=== PATIENT | female | born 1960 | race Two or more races ===

== ENCOUNTER → 2023-02-03 | Outpatient (CLI) | payer OTHER, SELFPAY ==
--- NOTE | 2023-02-03 15:57 | BI_ITS ---
MAMMOGRAPHY - BILATERAL SCREENING REASON FOR EXAM: Female, 62 years old. Routine annual screening examination. PERTINENT HISTORY: Aunt with breast cancer. TECHNIQUE: Digital bilateral breast traci (3D mammographic acquisition) in the CC and MLO projections. 2-D mediolateral oblique (MLO) and craniocaudad (CC) views of both breasts were obtained. CAD: Full Field Digital Mammography with Computer Added Detection was performed. COMPARISON: Comparison is made with prior outside examination October 24, 2020. FINDINGS: Breast Composition: The breasts are heterogeneously dense, which may obscure small masses. There are no dominant masses or suspicious calcifications. Stable small benign-appearing bilateral axillary lymph nodes. No other significant abnormalities are identified. There has been no significant change since the prior study. BI/SCRN MAMM (CAD)W/TRACI BILAT IMPRESSION: Stable bilateral screening mammogram. Yearly follow-up mammogram recommended. (A) ASSESSMENT CATEGORY: BIRADS Category 2: Benign. A letter regarding these results will be sent to the patient by the facility within 30 days. Approximately 10% of breast cancers are not detected by mammography. A normal mammogram should not delay biopsy of a clinically suspicious abnormality. [id number] Electronically Signed: Andrew Yousif MD at 8:30 EST ,
== END | disposition home or self-care (01) ==
LOC: OPBI 15:55
PROVIDERS: PCP Internal Medicine; Visit Provider Student in an Organized Health Care Education/Training Program
DX: Z12.31 Encounter for screening mammogram for malignant neoplasm of breast (principal)
CPT/HCPCS: 77063; 77067

== ENCOUNTER 2023-10-14 12:00 | Outpatient (RCR) | payer OTHER, SELFPAY ==
--- NOTE | 2023-08-28 13:02 | HP.PTEVAL_ITS ---
Patient's Visit Information Visit Information Visit Information: SYLVIA RIVERA is a 62 year old F referred to Physical Therapy by Dr. 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 Date of Evaluation: 08/27/23 Physical Therapist: Jennifer Sky PT, Cert MDT Visit Plan Frequency: 1x/Week Duration: 2-4 Months Plan: MANUAL PF THERAPY FOR LENGTHENING/RELAXATION AND TRIGGER POINT RELEASE. CORE STRENGTHENING. ANUEL LE STRETCHING. HOME INSTRUCTIONS. 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 Disability: NO Present symptoms: PAIN WITH INTERCOURSE. OTHERWISE NO PAIN OTHER THAN WITH IC FLARE-UPS. PATIENT DENIES HAVING ANY URINARY INCONTINENCE CURRENTLY BUT REPORTS SHE DOES HAVE SOME WHEN IC FLARES. Present since: YEARS Pain Scale: WORST 7/10 Is it getting better, worse or staying the same: GETTING WORSE Commenced as a result of: NO APPARENT REASON. Disturbed sleep: GETTING UP TO URINATE 0-1 TIMES AT NIGHT. Previous history/Previous treatment: INTERSTITIAL CYSTITIS. MIXED INCONTINENCE. ONE UTI IN PAST YEAR. DYSPAREUNIA. VAGINAL INFECTION IN THE SPRING INVOLVING VAGINAL BLEEDING. Treatment this episode: PATIENT DENIES HAVING ANY PRIOR OR CURRENT TREATMENT FOR DYSPAREUNIA. Gait: NORAML Prolapse (Falling out feeling): NO Frequency of Urination: APPROX 5 TIMES A DAY. Ability to stop urine flow: YES Ability to initiate urine stream: YES Dyspareunia: YES Bowel Incontinence: NO Imaging: PATIENT REPORTS TESTING RECENTLY SHOWED GOOD EMPTYING OF HER BLADDER. NO OTHER RECENT BACK, HIP OR PELVIC IMAGING THAT PATIENT REPORTS. PMH/Recent major surgery: MIGRAINES, GLAUCOMA, GERD, PARTIAL HYSTERECTOMY. OTHER: PATIENT REPORTS SHE HAS A VERY STRESSFUL JOB AND SHE FEELS VERY OVERWHELMED. SHE STATES SHE FEELS LIKE HER CORE AND HER MUSCLES ARE SLOPPY AND SHE NEEDS AN EXPERT TO HELP HER. Objective Objective: Sitting/Standing Posture: FAIR. MILDLY REDUCED LUMBAR LORDOSIS BUT NO RELEVANT LATERAL SHIFT. Other Observations: INDEP GAIT AND TRANSFERS Sensory deficit: ANUEL LE LIGHT TOUCH SENSATION GROSSLY INTACT AND SYMMETRICAL ROM deficit: ANUEL LE HS, HIP ADDUCTOR, HIP ER AND GASTROC-SOLEUS COMPLEX TIGHTNESS. Motor deficit: ANUEL LE STRENGTH GROSSLY 5/5 WITH MMT'ING EXCEPT HIPS 4/5. Dural Signs: NEGATIVE ANUEL LE'S. Lumbar mvmt loss: flex - MIN ext - MOD R SG - MIN L SG - MOD PATIENT DENIES PAIN WITH LUMBAR ROM TESTING ALL PLANES. Core strength: POOR Palpation: PATIENT AND THERAPIST DEFERRED INTERNAL MANUAL PF TESTING TO THE NEXT FOLLOW UP VISIT OR TWO DUE TO PATIENT FEELING OVERWHELMED. FUNCTIONAL SCREEN: Incontinence Impact Questionnaire Score: 1 Urogenital Distress Inventory Score: 3 Goals Goal 1:: PATIENT WILL BE ABLE TO HAVE SEXUAL RELATIONS WITH HER WITHOUT PAIN. Goal Time Frame: 6-8 Weeks Goal 2:: PATIENT WILL BE INDEP WITH A HEP/HOME INSTRUCTIONS FOR CONTINUED IMPROVEMENT ONCE FORMAL PHYSICAL THERAPY CONCLUDES. Goal Time Frame: 8-12 Weeks Anticipated Interventions Patient/Client Instruction: Educate patient on: Condition, Plan of Care and Risk Factors For the Purpose of:: To improve self management Therapeutic Exercise to Include: Strength training, Flexibilty training, Relaxation training and Dynamic Lumbar Stabilization For the Purpose of:: To decrease pain, To improve muscle performance and motor function and To increase flexibility/ROM Manual Therapy Techniques to Include: Trigger point massage and Soft tissue mobilization For the Purpose of:: To decrease pain and To increase flexibility/ROM Text: Thank you for the opportunity to evaluate your patient. For Medicare and Medicare HMO plans, please review the plan of care and approve it. It will need to be FAXED BACK to us at [phone] for Medicare purposes. For Medicare only, by signing this I certify the plan of care. Please let me know if there are questions or concerns regarding this plan of care. Physician Signature: Date:
== END 2023-10-14 19:00 | disposition home or self-care (01) ==
LOC: PT 12:00
PROVIDERS: PCP Internal Medicine; Visit Provider Urology
DX: K59.02 Outlet dysfunction constipation (principal); N94.10 Unspecified dyspareunia
CPT/HCPCS: 97162; 97530

== ENCOUNTER 2024-03-01 11:30 | Outpatient (RCR) | payer OTHER, SELFPAY ==
--- NOTE | 2024-02-04 14:57 | HP.PTEVAL ---
Patient's Visit Information Visit Information Visit Information: SYLVIA RIVERA is a 63 year old F referred to Physical Therapy by Dr. Samantha Kay MD with a diagnosis of PELVIC FLOOR DYFUNCTION/DYSPAREUNIA. Date of Evaluation: 02/04/24 Physical Therapist: Jennifer Sky, PT, Cert MDT Visit Plan Frequency: 2x /Week Duration: 4-6 Weeks Plan: INTERNAL MANUAL PELVIC FLOOR THERAPY FOR LENGTHENING, RELAXATION AND PAIN RELIEF. THER EX AND ACT INSTRUCTION FOR PELVIC RELAXATION AND STRETCHING. Subjective Subjective: THIS PATIENT STOPPED ATTENDING PT IN OCT 2023 AND RETURNS NOW FOR EVALUATION WITH A NEW PT ORDER. 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 Disability: NO Present symptoms: PAIN WITH INTERCOURSE. OTHERWISE NO PAIN OTHER THAN WITH IC FLARE-UPS. HAVING SOME URINARY LEAKAGE ON AND OFF DURING THE DAY BUT NOT EVERY DAY. PATIENT REPORTS URINARY LEAKING WITH BENDING OVER ESPECIALLY IN THE MORNINGS AND ESPECIALLY IF SHE WAITED A LONG TIME TO VOID. Present since: PAIN WITH INTERCOURSE IS CHRONIC BUT UI IS NEW. Pain Scale: WORST 7/10 Is it getting better, worse or staying the same: GETTING BETTER SINCE STARTING PT LAST EPISODE OF CARE Commenced as a result of: NO APPARENT REASON. Disturbed sleep: GETTING UP TO URINATE 0-1 TIMES AT NIGHT. Previous history/Previous treatment: INTERSTITIAL CYSTITIS. MIXED INCONTINENCE. ONE UTI IN PAST YEAR. DYSPAREUNIA. VAGINAL INFECTION IN THE SPRING INVOLVING VAGINAL BLEEDING. PT 2022 Treatment this episode: NO NEW TREATMENT. Gait: NORAML Prolapse (Falling out feeling): NO Frequency of Urination: APPROX 5 TIMES A DAY. Ability to stop urine flow: YES Ability to initiate urine stream: YES Dyspareunia: YES Bowel Incontinence: NO Imaging: PATIENT REPORTS TESTING RECENTLY SHOWED GOOD EMPTYING OF HER BLADDER. NO OTHER RECENT BACK, HIP OR PELVIC IMAGING THAT PATIENT REPORTS. PMH/Recent major surgery: MIGRAINES, GLAUCOMA, GERD, PARTIAL HYSTERECTOMY. OTHER: PATIENT REPORTS SHE IS STILL FEELING SOMEWHAT UNCOMFORTABLE ABOUT HAVING PELVIC FLOOR THERAPY BUT BASED ON RECOMMENDATIONS FROM DR. KAY SHE IS WILLING TO TRY. SHE REPORTS SHE HAS CONTINUED HER INCONSISTENTLY AND FELT BENEFIT WHEN SHE WAS DOING THEM. Objective Objective: Objective: Sitting/Standing Posture: FAIR. MILDLY REDUCED LUMBAR LORDOSIS BUT NO RELEVANT LATERAL SHIFT. Other Observations: INDEP GAIT AND TRANSFERS Sensory deficit: ANUEL LE LIGHT TOUCH SENSATION GROSSLY INTACT AND SYMMETRICAL ROM deficit: ANUEL LE HS, HIP ADDUCTOR, HIP ER AND GASTROC-SOLEUS COMPLEX TIGHTNESS. Motor deficit: ANUEL LE STRENGTH GROSSLY 5/5 WITH MMT'ING EXCEPT HIPS 4/5. Dural Signs: NEGATIVE ANUEL LE'S. Lumbar mvmt loss: flex - MIN ext - MOD R SG - MIN L SG - MOD PATIENT DENIES PAIN WITH LUMBAR ROM TESTING ALL PLANES. Core strength: POOR Palpation: PATIENT AGREEABLE TO INTERNAL MANUAL PELVIC FLOOR TESTING TODAY. SHE HAS TIGHTNESS AND TENDERNESS THROUGHOUT HER PELVIC FLOOR REGION BUT ESPECIALLY THE RIGHT LEVATOR ANI. WITH TESTING HER PF STRENGTH IS 3/5 X 5 SEC X 3 REPS AND PATIENT DENIES INCREASED PAIN WITH STRENGHT TESTING. PATIENT IS UNABLE TO FULLY RELAX PELVIC FLOOR BUT RELAXATION IMPROVES WITH CUEING. FUNCTIONAL SCREEN: Incontinence Impact Questionnaire Score: 1 Urogenital Distress Inventory Score: 4 Goals Goal 1:: PATIENT WILL BE ABLE TO HAVE SEXUAL RELATIONS WITH HER WITHOUT PAIN. Goal Time Frame: 4-6 Weeks Goal 2:: PATIENT WILL BE INDEP WITH A HEP/HOME INSTRUCTIONS FOR CONTINUED IMPROVEMENT ONCE FORMAL PHYSICAL THERAPY CONCLUDES. Goal Time Frame: 4-6 Weeks Rehabilitation Potential Physical Therapy Diagnosis: BELKIS TONE PELVIC FLOOR WITH PELVIC FLOOR AND CORE WEAKNESS. Rehabilitation Potential: Good Anticipated Interventions Patient/Client Instruction: Educate patient on: Condition, Plan of Care and Risk Factors For the Purpose of:: To improve self management Therapeutic Exercise to Include: Flexibilty training and Relaxation training For the Purpose of:: To decrease pain, To decrease soft tissue restriction and To increase flexibility/ROM Manual Therapy Techniques to Include: Trigger point massage and Soft tissue mobilization For the Purpose of:: To decrease pain, To decrease soft tissue restriction and To increase flexibility/ROM Text: Thank you for the opportunity to evaluate your patient. For Medicare and Medicare HMO plans, please review the plan of care and approve it. It will need to be FAXED BACK to us at [phone] for Medicare purposes. For Medicare only, by signing this I certify the plan of care. Please let me know if there are questions or concerns regarding this plan of care. Physician Signature: Date:
== END 2024-03-01 19:00 | disposition home or self-care (01) ==
LOC: PT 11:30
PROVIDERS: PCP Internal Medicine; Referring Provider Urology; Visit Provider Urology
DX: N94.10 Unspecified dyspareunia (principal)
CPT/HCPCS: 97140; 97162; 97530